=== PATIENT | male | born 1945 | race Two or more races ===

== ENCOUNTER 2021-01-24 16:38 | Inpatient (IN) | payer OTHER ==
[~2021-01-24] VITALS: Ht 172.7 cm; Wt 81.6 kg
[2021-01-24 17:22] LABS: Basophils # (auto) 0 10 ^3/uL (0-0.2); Eosinophils % (auto) 2.6 % (0.0-7.0); Mean Corpuscular Hemoglobin 35.5 pg (28.0-32.0); Monocytes # (auto) 0.4 10 ^3/uL (0-1.3); Neutrophils # (auto) 3.3 10 ^3/uL (1.6-8.6); Nucleated Red Blood Cells % 0.1 %; Platelet Count (auto) 158 10^3/uL (140-450); White Blood Cell 5.9 10^3/uL (4.4-10.8)
[2021-01-24] MEDS ORDERED: ATROPINE SULF 0.5 MG/5ML SYR ONE (17:23)
[2021-01-24] MEDS ORDERED: GLUCAGON HYDROCHLORIDE (RDNA) 1 MG VIAL ONE (17:23)
[2021-01-24 17:24] LABS: Basophils % (auto) 0.3 % (0.0-2.0); Eosinophils # (auto) 0.1 10 ^3/uL (0-0.8); Hematocrit 34.7 % (41.0-53.0); Hemoglobin 11.8 g/dL (13.5-17.5); Lymphocytes % (auto) 34.4 % (10.0-50.0); Mean Corpuscular Hgb Conc. 34.1 g/dL (32.0-36.0); Mean Corpuscular Volume 104.3 fL (80.0-100.0); Monocytes % (auto) 6.4 % (0.0-12.0); Neutrophils % (auto) 56.3 % (37.0-80.0); Red Blood Cells 3.33 10^6/uL (4.5-5.90); Red Cell Distribution Width 16.4 % (11.8-14.3)
[2021-01-24] MEDS ORDERED: GLUCAGON HYDROCHLORIDE (RDNA) 1 MG VIAL IV ONE (17:30)
[2021-01-24] MEDS ORDERED: ATROPINE SULF 1 MG/10ml SYR IV ONE ×2 (17:30→18:30)
[2021-01-24 17:40] LABS: Calcium 8.1 mg/dL (8.5-10.1); Chloride 116 mmol/L (98-107); Potassium 4.9 mmol/L (3.5-5.1); Sodium 141 mmol/L (136-145)
[2021-01-24 17:44] LABS: Alanine Aminotransferase 13 U/L (16-61); Anion Gap 11 (5-15); Aspartate Aminotransferase 7 U/L (15-37); BUN/Creatinine Ratio 26.7; Blood Urea Nitrogen 65 mg/dL (7-18); Carbon Dioxide 14 mmol/L (21-32); GFR African American 34 mL/min; GFR Non-African American 28 mL/min; Glucose 92 mg/dL (74-106); Magnesium 2.3 mg/dL (1.6-2.6)
[2021-01-24 17:49] LABS: Alkaline Phosphatase 95 U/L (45-117); Bilirubin, Total 0.3 mg/dL (0.2-1.0); Total Protein 6.9 g/dL (6.4-8.2)
[2021-01-24 18:35] LABS: Urine Bacteria NONE SEEN /hpf (None Seen); Urine Blood Negative /uL (Negative); Urine Specific Gravity 1.012 (1.001-1.035); Urine WBC 1 /hpf (0 - 3)
[2021-01-24 18:45] LABS: INR 1.03 (0.9-1.15); Partial Thromboplastin Time 28.5 sec (23.0-31.2)
[2021-01-24] MEDS ORDERED: ISOPROTERENOL HCL INJECTION 1 MG in D5W 5% 250 ML IV SCH ×2 (18:45→23:00)
[2021-01-24] MEDS ORDERED: NITROGLYCERIN 0.4 MG SL TAB SL PRN (20:30)
[2021-01-24] MEDS ORDERED: ACETAMINOPHEN 500 MG TAB PO PRN (20:30)
[2021-01-24] MEDS ORDERED: hydrALAZINE HCL 20 MG/ML VL IV PRN (20:30)
[2021-01-24] MEDS ORDERED: MORPHINE SULF INJ 2 MG/ML SYRINGE 1ML IV PRN ×2 (20:30)
[2021-01-24] MEDS ORDERED: ONDANSETRON HCL 4 MG/2 ML VIAL IV PRN (20:30)
[2021-01-24] MEDS ORDERED: HYDROcodone-ACET 5/325MG TAB PO PRN (20:30)
[2021-01-24] MEDS ORDERED: DOPamine 1600MCG/ML D5W 250 ML IV ONE (23:45)
[2021-01-25] MEDS: DOPamine 1600MCG/ML D5W 250 ML IV SCH ×3 (00:10→15:00)
[2021-01-25] MEDS ORDERED: DOPamine 1600MCG/ML D5W 250 ML IV SCH (01:00)
[2021-01-25 07:23] LABS: Basophils # (auto) 0 10 ^3/uL (0-0.2); Basophils % (auto) 0.4 % (0.0-2.0); Eosinophils # (auto) 0 10 ^3/uL (0-0.8); Eosinophils % (auto) 0.6 % (0.0-7.0); Hemoglobin 12.7 g/dL (13.5-17.5); Monocytes # (auto) 0.3 10 ^3/uL (0-1.3); Monocytes % (auto) 4.5 % (0.0-12.0)
[2021-01-25 07:25] LABS: Hematocrit 37.1 % (41.0-53.0); Lymphocytes # (auto) 0.9 10 ^3/uL (0.4-5.4); Lymphocytes % (auto) 12.6 % (10.0-50.0); Mean Corpuscular Hemoglobin 35.4 pg (28.0-32.0); Mean Corpuscular Hgb Conc. 34.2 g/dL (32.0-36.0); Mean Corpuscular Volume 103.5 fL (80.0-100.0); Neutrophils # (auto) 6.1 10 ^3/uL (1.6-8.6); Neutrophils % (auto) 81.9 % (37.0-80.0); Nucleated Red Blood Cells % 0.1 %; Platelet Count (auto) 159 10^3/uL (140-450); Red Blood Cells 3.58 10^6/uL (4.5-5.90); Red Cell Distribution Width 16.2 % (11.8-14.3); White Blood Cell 7.5 10^3/uL (4.4-10.8)
[2021-01-25 07:40] LABS: Albumin 3.1 g/dL (3.4-5.0); Calcium 8.6 mg/dL (8.5-10.1); Potassium 4.3 mmol/L (3.5-5.1)
[2021-01-25 07:47] LABS: BUN/Creatinine Ratio 29.4; Bilirubin, Total 0.3 mg/dL (0.2-1.0); Total Protein 7.1 g/dL (6.4-8.2)
[2021-01-25] MEDS ORDERED: FAMOTIDINE 20 MG TAB PO SCH (10:00)
[2021-01-25 18:32] VITALS: BP 163/48
== END 2021-01-25 18:39 | disposition short-term general hospital (02) | DRG 309 ==
LOC: ER 16:38 → TELE 20:23
PROVIDERS: ADMIT Nurse Practitioner Acute Care; ATTEND Internal Medicine Geriatric Medicine
DX: I44.2 Atrioventricular block, complete (principal); E87.2 Acidosis; N18.4 Chronic kidney disease, stage 4 (severe); I13.0 Hypertensive heart and chronic kidney disease with heart failure and stage 1 through stage 4 chronic kidney disease, or unspecified chronic kidney disease; Z20.822 Contact with and (suspected) exposure to COVID-19; R00.1 Bradycardia, unspecified; E78.5 Hyperlipidemia, unspecified; I48.91 Unspecified atrial fibrillation; N40.0 Benign prostatic hyperplasia without lower urinary tract symptoms; I50.9 Heart failure, unspecified; E66.9 Obesity, unspecified; Z85.528 Personal history of other malignant neoplasm of kidney; Z85.038 Personal history of other malignant neoplasm of large intestine; Z68.27 Body mass index [BMI] 27.0-27.9, adult; Z90.5 Acquired absence of kidney; Z79.899 Other long term (current) drug therapy; Z83.3 Family history of diabetes mellitus; Z90.49 Acquired absence of other specified parts of digestive tract; Z90.89 Acquired absence of other organs
CPT/HCPCS: 36415; 71045; 80053; 80061; 81001; 83735; 83880; 84443; 84484; 85025; 85379; 85610; 85730; 87426; 93005; 93306; 96365; 96366; 96367; 96375; 99291; G0378; J0461; J7060